=== PATIENT | female | born 1990 | race Caucasian/White ===

== ENCOUNTER 2017-02-18 18:02 | Emergency (ER) | payer OTHER ==
[2017-02-18 18:27] VITALS: TEMP 98
[2017-02-18] MEDS ORDERED: diphenhydrAMINE 50 MG/1 ML VIAL IVP ONE (18:31)
[2017-02-18] MEDS ORDERED: Famotidine Inj 20 MG in Normal Saline Flush 10 ML IVP ONE (18:31)
[2017-02-18] MEDS ORDERED: DEXAMETHASONE PF 10 MG/1 ML VIAL IV ONE (18:31)
--- NOTE | 2017-02-18 18:37 | PDOC ---
Allergy Symptoms HPI - General Chief Complaint: Eye Problem / Injury Stated Complaint: SWELLING RIGHT INNER EYE Date Seen by Provider: 02/18/17 Time Seen by Provider: 18:32 Source: POSITIVE: Patient, Spouse Exam Limitations: POSITIVE: No limitations Nurse's Notes Reviewed & Considered: Yes - History of Present Illness Initial Comments: This is a pleasant 26-year-old female comes in today with chief complaint of swelling right upper eyelid. Patient states that approximately 1730 her right eye was itching, she reached up and scratched it and subsequently her eyelid began to swell rapidly. She denies any sensation of foreign object in her eye. Over the last 3 or 4 nights each evening she has developed hives. Prior to presentation here in the emergency room patient took a Benadryl at home. She thinks this was a 25 mg tablet. She presently denies any fever chills or sweats , no headache, no chest pain or shortness of breath, no nausea vomiting or diarrhea, no burning upon urination or increased frequency of urination. She denies any recent changes in soap or detergents, or perfumes. She did trim some bushes around her home yesterday. Body Location Affected: REPORTS: Face (Right upper eyelid on the inner canthus) Timing: REPORTS: Abrupt Duration: 1 hour Severity: Mild Quality: REPORTS: Burning, Itching Associated Symptoms: REPORTS: Swelling Identified Causes: REPORTS: No When Exposed: REPORTS: Just Prior to Sx Onset Where Exposed: REPORTS: Home Suspected Etiology: REPORTS: Other (Unknown etiology) Similar Symptoms Previously: Yes (similar symptoms over the last 3-4 days.) Recent Care Received: REPORTS: Denies Treatment Prior To Arrival: REPORTS: Benadryl - Oral Any Prior Injuries Related to Current Complaint?: No - Patient Home Medications Home Medications: Home Medications Desogestrel-Ethinyl Estradiol [Reclipsen 28 Day Tablet] 1 tab PO DAILY #28 tab 02/04/17 diphenhydrAMINE HCl [Benadryl] 02/18/17 - Patient Allergies Allergies/Adverse Reactions: Allergies Allergy/AdvReac Type Severity Reaction Status Date / Time Unable to Assess Allergy Verified 02/18/17 18:10 Past Medical History - heen HEENT History: Denies History Cardiovascular History: Denies History Respiratory History: Denies History Gastrointestinal History: Denies History Genitourinary History: Denies History Endocrine History: Denies History Musculoskeletal History: Denies History Neurological History: Denies History Blood Disorders: Denies History Psychiatric History: Denies History History of Sexually Transmitted Diseases: No Female Reproductive History: Denies History Obstetrical History: Denies History Cancer History: Denies History In Past Year Been Physically Harmed or Verbally Threatened: No History of MDRO: No History of Other Communicable Diseases: No Tobacco Use: Never Smoker Alcohol Use: Occasionally Substance Use Type: None Previous Surgical History: No Significant Family History: No pertinent family hx ROS - Limitations ROS Limitations: No Limitations Constitution: REPORTS: Denies Symptoms Cardiovascular: REPORTS: Denies Cardiac Symptoms Respiratory: REPORTS: Denies Resp Symptoms Neurological: REPORTS: Denies Neuro Symptoms Gastrointestinal: REPORTS: Denies GI Symptoms Endocrine: REPORTS: Denies Symptoms Musculoskeletal: REPORTS: Denies MS Symptoms Genitourinary: REPORTS: Denies Symptoms Eyes: REPORTS: Itching Eyes ENT: REPORTS: Denies Symptoms Skin: REPORTS: Denies Skin Symptoms Lympathic: REPORTS: Denies Lympathic Symptoms Immunologic: POSITIVE: Denies Symptoms Psychiatric: POSITIVE: Denies Psych Symptoms Allergy Symptoms Physical Exam - General Appearance General Appearance: POSITIVE: Alert, Cooperative, No Acute Distress - HEENT Head / Face: POSITIVE: Atraumatic, Normal Inspection, Swelling (Swelling of the right upper eyelid along the inner canthus.) Eyes: POSITIVE: Inspection Normal, PERRL, EOM's Intact, Conjunctivae Uninjured, No Nystagmus, Sclera Normal Ears: POSITIVE: Ears Normal Inspection, Auricle Normal Nose: POSITIVE: Inspection Normal, No Apparent Trauma, Nares Normal, No CSF Leak Oropharynx: POSITIVE: External Inspection Nml, Pharynx Inspect. Nml, Airway Intact, Voice Normal, Moist Mucous Membranes, No Oral Injury, Lips Normal, Gums Normal, No Drooling, No Thrush - Pupils Pupil Size: 5 mm: Bilateral - Neck Neck: POSITIVE: Normal Inspection, No Apparent Injury - Respiratory Respiratory: POSITIVE: No Respiratory Distress, Breath Sounds Normal - Cardiovascular Cardiovascular: POSITIVE: Regular Rate and Rhythm, Heart Sounds Normal, Equal Pulses, Strong Pulses - Abdomen Abdomen: Soft: (All Quadrants), Normal Bowel Sounds: (All Quadrants), Denies Tenderness: (All Quadrants) - Skin Skin: POSITIVE: Intact, Normal For Race, Warm, Dry, No Rash - Extremities Extremity: Non-Tender: (All Extremities), Normal ROM: (All Extremities), Normal Inspection: (All Extremities) - Neurological / Psychological Neurological: POSITIVE: Affect Apporpriate, Oriented X3, 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 Her right eyelid swelling improved. Assessment: Allergic reaction. Unknown etiology. Plan: Discharge home. Benadryl 25-50 mg every 4-6 hours as needed, 20 mg of Pepcid once a day. Follow-up with primary care physician. - Consult Counseled: POSITIVE: Patient, Family, RE: DX, RE: Need for F/U Patient Care Time - Estimated PCT Patient Care Time (In Minutes): 20 Vital Signs - Recent Vital Signs Vital Signs: Vital Signs (Last 8 hours) Temp Pulse Resp BP Pulse Ox 02/18/17 18:08 98.0 F 76 16 134/75 100 - VS Reviewed Vital Signs Reviewed: Yes Discharge Clinical Impression: Swelling of eyelid Discharge Disposition: Discharged to Home Condition: Stable Patient Instructions Given at Discharge: Urticaria (ED)
[2017-02-18 19:44] VITALS: RESP 18
== END 2017-02-18 19:40 | disposition home or self-care (01) ==
LOC: ER 18:02
DX: R22.0 Localized swelling, mass and lump, head (principal); H57.8 Other specified disorders of eye and adnexa
CPT/HCPCS: 96374; 96375; 99282; 99283; J1200; S0028; J1100